=== PATIENT | female | born 1980 ===

== ENCOUNTER 2020-12-07 16:24 | Emergency (ER) | payer SELFPAY ==
[2020-12-07 17:26] VITALS: BP 131/85
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
== END 2020-12-07 20:00 | disposition home or self-care (01) ==
LOC: ED 16:24
DX: S16.1XXA Strain of muscle, fascia and tendon at neck level, initial encounter (principal); S39.012A Strain of muscle, fascia and tendon of lower back, initial encounter; G44.319 Acute post-traumatic headache, not intractable; F17.200 Nicotine dependence, unspecified, uncomplicated; Z79.899 Other long term (current) drug therapy; V89.2XXA Person injured in unspecified motor-vehicle accident, traffic, initial encounter; Y93.89 Activity, other specified; Y92.488 Other paved roadways as the place of occurrence of the external cause; Y99.8 Other external cause status
CPT/HCPCS: 99283